=== PATIENT | male | born 1985 | race Hispanic/Latino ===

== ENCOUNTER 2018-02-19 20:04 | Emergency (ER) | payer BC ==
[2018-02-19] MEDS ORDERED: NA CHLORIDE 0.9% 1,000 ML ONE (21:01)
--- NOTE | 2018-02-19 21:26 | RAD REPORT ---
EXAM DESCRIPTION: CT - Head Brain Wo Cont - 02/19/2018 9:21 pm CLINICAL HISTORY: Seizures, history of brain injury 5 years earlier COMPARISON: CT head June 2017 TECHNIQUE: Axial 5 mm thick images of the head were obtained without IV contrast. All CT scans are performed using dose optimization technique as appropriate and may include automated exposure control or mA/KV adjustment according to patient size. FINDINGS: No intracranial hemorrhage, mass, edema or shift of mid-line structures. No acute infarcti on changes seen. Large area of encephalomalacia is present in the right frontal lobe from prior traum a. Smaller area of right temporal encephalomalacia is present. There is extensive postsurgical change to the right side of the skull. A Ventricles are normal. Mastoid air cells and visualized portions of the paranasal sinuses are clear. No acute bony findings. IMPRESSION: Negative non-contrast CT head examination for acute finding. No significant change Benitez orosco.
[2018-02-19 21:39] LABS: Absolute Lymphocytes (CBC) 0.7 K/uL (0.7-4.9); Absolute Monocytes 0.7 K/uL (0.1-1.3); Absolute Neutrophil 8.6 K/uL (1.8-8.0); Basophils % 0.2 % (0-1.3); Eosinophils % 0.1 % (0-4.4); Lymphocytes % 6.7 % (15.3-44.8); MCH 30.6 pg (27.0-35.0); MCV 87.4 fL (80-100); MPV 7.9 fL (7.6-11.3); Monocytes % 7.4 % (3.3-12.3); RBC Red Blood Cell Count 5.49 M/uL (4.33-5.43)
[2018-02-19 21:50] LABS: Barbiturates NEGATIVE (NEGATIVE); Benzodiazepines NEGATIVE (NEGATIVE); Cocaine NEGATIVE (NEGATIVE); METHAMPHETAM NEGATIVE (NEGATIVE); Methadone NEGATIVE (NEGATIVE); Opiates NEGATIVE (NEGATIVE); Phencyclidine NEGATIVE (NEGATIVE); THC Cannibis NEGATIVE (NEGATIVE)
[2018-02-19 21:52] LABS: Potassium 3.9 mmol/L (3.5-5.1)
[2018-02-19 22:13] LABS: Blood Morphology Comment NOT SEEN (NOT SEEN); Platelet Estimate ADEQ
--- NOTE | 2018-02-19 22:22 | ER ---
Nurse's Notes [facility] Name: Mario Munoz Age: 32 yrs Sex: Male : 1985 Arrival Date: 02/19/2018 Time: 20:05 Bed 14 Private MD: Diagnosis: Epilepsy and recurrent seizures Presentation: 02/19 20:26 Presenting complaint: pt girlfriend stated pt had 2 seizures today, no hx seizures. pt ak1 girlfriend stated 1300 and 1830 when seizures occurred. Transition of care: patient was not received from another setting of care. Onset of symptoms was February 19, 2018. Risk Assessment: Do you want to hurt yourself or someone else? Patient reports no desire to harm self or others. Initial Sepsis Screen: Does the patient meet any 2 criteria? No. Patient's initial sepsis screen is negative. Does the patient have a suspected source of infection? No. Patient's initial sepsis screen is negative. Care prior to arrival: None. 20:26 Method Of Arrival: Ambulatory ak1 20:26 Acuity: CEM 3 ak1 20:28 Note pt admits to daily alcohol drinking, pt did not drink today. pt stated he drinks ak1 "a lot" pt denies street drugs. pt c/o throat pain. Triage Assessment: 20:25 General: Appears in no apparent distress. Behavior is calm, cooperative. Neuro: Level ak1 of Consciousness is awake, alert, obeys commands, Oriented to person, place, time, situation, Manager Transit are equal bilaterally Moves all extremities. Gait is steady, Speech is normal, Facial symmetry appears normal. 20:30 Pain: Complains of pain in throat pain. ak1 Historical: - Allergies: 20:25 No Known Allergies; ak1 - Home Meds: 20:25 None [Active]; ak1 - PMHx: 20:25 brain injury; ak1 - PSHx: 20:25 craniotomy; ak1 - Immunization history:: Adult Immunizations unknown. - Social history:: Smoking status: Patient/guardian denies using tobacco. - Ebola Screening: : No symptoms or risks identified at this time. Screenin:28 Abuse screen: Denies threats or abuse. Denies injuries from another. Nutritional ak1 screening: No deficits noted. Tuberculosis screening: No symptoms or risk factors identified. Fall Risk None identified. Assessment: 20:45 General: Appears in no apparent distress. comfortable, Behavior is calm, cooperative, aa1 appropriate for age. Neuro: Level of Consciousness is awake, alert, obeys commands, Oriented to person, place, time, situation, Moves all extremities. Full function Gait is steady, Speech is normal, Facial symmetry appears normal, Pupils are PERRLA, Reports headache Denies blurred vision dizziness, diplopia. Neuro: Reports Seizure activity reported prior to arrival. Cardiovascular: Heart tones S1 S2 present. Respiratory: Airway is patent Respiratory effort is even, unlabored, Respiratory pattern is regular, symmetrical. GI: No signs and/or symptoms were reported involving the gastrointestinal system. : No signs and/or symptoms were reported regarding the genitourinary system. EENT: No signs and/or symptoms were reported regarding the EENT system. Derm: Skin is intact, is healthy with good turgor, Skin is pink, warm \\T\\ dry. Musculoskeletal: Circulation, motion, and sensation intact. Capillary refill < 3 seconds. 21:40 Reassessment: Patient appears in no apparent distress at this time. Patient and/or aa1 family updated on plan of care and expected duration. Pain level reassessed. Patient is alert, oriented x 3, equal unlabored respirations, skin warm/dry/pink. Awaiting lab results. 22:54 Reassessment: Patient appears in no apparent distress at this time. Patient is alert, aa1 oriented x 3, equal unlabored respirations, skin warm/dry/pink. Discussed d/c \\T\\ f/u instructions with pt \\T\\ family; denies questions or concerns at this time Patient denies pain at this time. Vital Signs: 20:26 BP 130 / 90; Pulse 110; Resp 20; Temp 98.2(O); Pulse Ox 96% on R/A; Weight 90.72 kg ak1 (R); Height 6 ft. 2 in. (187.96 cm); Pain 8/10; 20:57 BP 128 / 93; Pulse 89; Resp 16; Pulse Ox 95% on R/A; mt 21:40 BP 130 / 86; Pulse 82; Resp 18; Pulse Ox 97% on R/A; aa1 22:54 BP 136 / 86; Pulse 84; Resp 16; Pulse Ox 96% on R/A; Pain 0/10; aa1 20:26 Body Mass Index 25.68 (90.72 kg, 187.96 cm) ak1 Lanre Coma Score: 20:25 Eye Response: spontaneous(4). Verbal Response: oriented(5). Motor Response: obeys ak1 commands(6). Total: 15. ED Course: 20:05 Patient arrived in ED. ds1 20:26 Arm band placed on Patient placed in an exam room, Patient notified of wait time. ak1 20:27 Triage completed. ak1 20:30 Patient has correct armband on for positive identification. ak1 20:32 Preet Mendoza MD is Attending Physician. gs 20:35 Seizure precautions initiated. aa1 20:50 Inserted saline lock: 20 gauge in right antecubital area, using aseptic technique. mt Blood collected. 20:50 Urine collected: clean catch specimen. aa1 20:53 Indigo Wilhelm, RN is Primary Nurse. aa1 21:21 CT Head Brain wo Cont In Process Unspecified. EDMS 22:21 Ryland Rush MD is Referral Physician. gs 22:54 No provider procedures requiring assistance completed. IV discontinued, intact, aa1 bleeding controlled, No redness/swelling at site. Pressure dressing applied. Administered Medications: 21:00 Drug: NS 0.9% 1000 ml Route: IV; Rate: 1 bolus; Site: right antecubital; aa1 22:00 Follow up: IV Status: Completed infusion aa1 Outcome: 22:21 Discharge ordered by . gs 22:54 Discharged to home ambulatory, with family. aa1 22:54 Condition: good 22:54 Discharge instructions given to patient, family, Instructed on discharge instructions, follow up and referral plans. Demonstrated understanding of instructions, follow-up care. 22:57 Patient left the ED. aa1 Signatures: Dispatcher [employer] EDMS Indigo Wilhelm, Rossana Beebe RN ds1 Carmen Phelps RN RN ak1 Thompson, Moriah ar Preet Mendoza MD MD gs
--- NOTE | 2018-02-19 22:22 | EDPHYS ---
Physician Documentation [facility] Name: Mario Munoz Age: 32 yrs Sex: Male : 1985 Arrival Date: 02/19/2018 Time: 20:05 Bed 14 Private MD: ED Physician Preet Mendoza HPI: 02/20 01:18 This 32 yrs old Male presents to ER via Ambulatory with complaints of Seizure. gs 01:18 The patient presents with a history of multiple seizures, a total of 2, that last 3 gs minute(s). Character of seizure(s): Motor activity: generalized. Seizure onset: at 13:00, then 4 hours later. Context: the seizure(s) was witnessed, by a significant other. Associated injury: Head/face: tongue, abrasion. Current symptoms: headache, that is mild. The patient has not experienced similar symptoms in the past. Historical: - Allergies: 02/19 20:25 No Known Allergies; ak1 - Home Meds: 20:25 None [Active]; ak1 - PMHx: 20:25 brain injury; ak1 - PSHx: 20:25 craniotomy; ak1 - Immunization history:: Adult Immunizations unknown. - Social history:: Smoking status: Patient/guardian denies using tobacco. - Ebola Screening: : No symptoms or risks identified at this time. ROS: 02/20 01:18 All other systems are negative. gs Exam: 01:18 Head/Face: Normocephalic, atraumatic. Eyes: Pupils equal round and reactive to light, gs extra-ocular motions intact. Lids and lashes normal. Conjunctiva and sclera are non-icteric and not injected. Cornea within normal limits. Periorbital areas with no swelling, redness, or edema. Neck: Trachea midline, no thyromegaly or masses palpated, and no cervical lymphadenopathy. Supple, full range of motion without nuchal rigidity, or vertebral point tenderness. No Meningismus. Chest/axilla: Normal chest wall appearance and motion. Nontender with no deformity. No lesions are appreciated. Cardiovascular: Regular rate and rhythm with a normal S1 and S2. No gallops, murmurs, or rubs. Normal PMI, no JVD. No pulse deficits. Respiratory: Lungs have equal breath sounds bilaterally, clear to auscultation and percussion. No rales, rhonchi or wheezes noted. No increased work of breathing, no retractions or nasal flaring. Abdomen/GI: Soft, non-tender, with normal bowel sounds. No distension or tympany. No guarding or rebound. No evidence of tenderness throughout. Back: No spinal tenderness. No costovertebral tenderness. Full range of motion. Skin: Warm, dry with normal turgor. Normal color with no rashes, no lesions, and no evidence of cellulitis. MS/ Extremity: Pulses equal, no cyanosis. Neurovascular intact. Full, normal range of motion. Neuro: Awake and alert, GCS 15, oriented to person, place, time, and situation. Cranial nerves II-XII grossly intact. Motor strength 5/5 in all extremities. Sensory grossly intact. Cerebellar exam normal. Normal gait. 01:18 Constitutional: The patient appears alert, awake. 01:18 ENT: Mouth: Tongue: abrasion left side. Vital Signs: 02/19 20:26 BP 130 / 90; Pulse 110; Resp 20; Temp 98.2(O); Pulse Ox 96% on R/A; Weight 90.72 kg ak1 (R); Height 6 ft. 2 in. (187.96 cm); Pain 8/10; 20:57 BP 128 / 93; Pulse 89; Resp 16; Pulse Ox 95% on R/A; mt 21:40 BP 130 / 86; Pulse 82; Resp 18; Pulse Ox 97% on R/A; aa1 22:54 BP 136 / 86; Pulse 84; Resp 16; Pulse Ox 96% on R/A; Pain 0/10; aa1 20:26 Body Mass Index 25.68 (90.72 kg, 187.96 cm) ak1 Lanre Coma Score: 20:25 Eye Response: spontaneous(4). Verbal Response: oriented(5). Motor Response: obeys ak1 commands(6). Total: 15. MDM: 20:46 Patient medically screened. 02/20 01:18 Differential diagnosis: seizure. Data reviewed: vital signs, nurses notes. Response to treatment: the patient's symptoms have markedly improved after treatment, and as a result, I will discharge patient. 01:18 Counseling: I had a detailed discussion with the patient and/or guardian regarding: the gs historical points, exam findings, and any diagnostic results supporting the discharge/admit diagnosis, lab results, the need for outpatient follow up, a neurologist. 02/19 20:47 Order name: Basic Metabolic Panel; Complete Time: 22:19 02/19 20:47 Order name: CBC with Diff; Complete Time: 22:19 02/19 20:47 Order name: CT Head Brain wo Cont; Complete Time: 21:27 02/19 20:47 Order name: Urine Drug Screen; Complete Time: 22:19 02/19 21:41 Order name: Manual Differential; Complete Time: : EDMS Administered Medications: 02/19 21:00 Drug: NS 0.9% 1000 ml Route: IV; Rate: 1 bolus; Site: right antecubital; aa1 22:00 Follow up: IV Status: Completed infusion aa1 Disposition: 02/19/18 22:21 Discharged to Home. Impression: Epilepsy and recurrent seizures. - Condition is Stable. - Discharge Instructions: Seizure, Adult. - Medication Reconciliation Form, Thank You Letter, Antibiotic Education, Prescription Opioid Use form. - Follow up: Ryland Rush MD; When: 2 - 3 days; Reason: Re-evaluation by your physician. Signatures: Dispatcher [employer] EDIndigo Koenig RN RN aa1 Carmen Phelps RN RN ak1 Preet Mendoza MD MD Corrections: (The following items were deleted from the chart) 22:57 22:21 02/19/2018 22:21 Discharged to Home. Impression: Epilepsy and recurrent seizures. aa1 Condition is Stable. Forms are Medication Reconciliation Form, Thank You Letter, Antibiotic Education, Prescription Opioid Use. Follow up: Ryland Rush; When: 2 - 3 days; Reason: Re-evaluation by your physician.
[2018-02-19 23:02] VITALS: TEMP 98.2
[2018-02-19 23:06] VITALS: BP 136/86; O2SAT 96
== END 2018-02-19 22:57 | disposition home or self-care (01) ==
LOC: ER 20:04
DX: G40.909 Epilepsy, unspecified, not intractable, without status epilepticus (principal)
CPT/HCPCS: 36415; 70450; 80048; 80307; 85025; 96360; 99284; J7030

== ENCOUNTER 2020-11-28 20:01 | Emergency (ER) | payer BC ==
--- NOTE | 2020-11-28 21:30 | RAD REPORT ---
EXAM DESCRIPTION: US - Scrotum Testicles - 11/28/2020 9:22 pm CLINICAL HISTORY: pain on L testicle Pain and swelling COMPARISON: No comparisons FINDINGS: The right testicle 4.3 x 3.2 x 2.1 cm. No intratesticular masses or evidence of testicular torsion. The left testicle 4.0 x 3.3 x 2.2 cm. No intratesticular masses or evidence of testicular torsion. Both epididymides are normal in size and appearance. Mild fluid in both scrotal sacs. IMPRESSION: No acute or worrisome abnormality seen.
[2020-11-28 22:20] LABS: Urine Blood Negative (Negative); Urine Glucose Negative (Negative); Urine Protein Negative (Negative); Urine Specific Gravity >=1.030 (1.005-1.030)
[2020-11-29 00:12] LABS: Absolute Lymphocytes (CBC) 2.5 K/uL (0.7-4.9); Basophils % 0.5 % (0-1.3); Hematocrit 46.6 % (39.6-49.0); Lymphocytes % 35.6 % (15.3-44.8); MPV 7.8 fL (7.6-11.3)
[2020-11-29 00:33] LABS: ALT/SGPT 41 U/L (12-78); AST/SGOT 20 U/L (15-37); Alkaline Phosphatase 106 U/L (45-117); BUN Blood Urea Nitrogen 18 mg/dL (7-18); Bicarbonate 28 mmol/L (21-32); Bilirubin Direct < 0.1 mg/dL (0-0.2); Bilirubin Total 0.4 mg/dL (0.2-1.0); Glucose Level 93 mg/dL (74-106); Lipase 126 U/L (73-393); Potassium 3.5 mmol/L (3.5-5.1); Protein, Total 8.1 g/dL (6.4-8.2); Sodium Level 140 mmol/L (136-145)
--- NOTE | 2020-11-29 01:32 | EDPHYS ---
Physician Documentation [facility] Name: Mario Munoz Age: 35 yrs Sex: Male : 1985 Arrival Date: 11/28/2020 Time: 20:04 Bed 13 Private MD: ED Physician Rick Noel HPI: 11/28 23:20 This 35 yrs old Male presents to ER via Ambulatory with complaints of Pubic mh7 Pain. 23:20 The patient presents with abdominal pain in the left lower quadrant. Onset: The mh7 symptoms/episode began/occurred 1 day(s) ago. The symptoms radiate to left testicle. Associated signs and symptoms: Pertinent positives: testicular pain, Pertinent negatives: nausea, vomiting, and diarrhea, nausea and vomiting, anorexia, blood in stools, chest pain, constipation, diarrhea, dysuria, fever, headache, hematuria, nausea, palpitations, shortness of breath, vomiting, vomiting blood. The symptoms are described as intermittent, vague, waxing/waning. Modifying factors: The symptoms are alleviated by nothing, the symptoms are aggravated by movement. Severity of pain: At its worst the pain was moderate yesterday, in the emergency department the pain has improved moderately. Historical: - Allergies: 20:14 No Known Allergies; ca1 - Home Meds: 20:14 None [Active]; ca1 - PMHx: 20:14 TBI; ca1 - PSHx: 20:14 brain surgery; ca1 - Immunization history:: Client reports receiving the 1st dose of the Covid vaccine, Flu vaccine is not up to date. - Social history:: Smoking status: Patient/guardian denies using tobacco, the patient reports quitting approximately 5 years ago. ROS: 23:20 Constitutional: Negative for fever, chills, and weight loss, Eyes: Negative for injury, mh7 pain, redness, and discharge, ENT: Negative for injury, pain, and discharge, Neck: Negative for injury, pain, and swelling, Cardiovascular: Negative for chest pain, palpitations, and edema, Respiratory: Negative for shortness of breath, cough, wheezing, and pleuritic chest pain, Back: Negative for injury and pain, MS/Extremity: Negative for injury and deformity, Skin: Negative for injury, rash, and discoloration, Neuro: Negative for headache, weakness, numbness, tingling, and seizure, Psych: Negative for depression, anxiety, suicide ideation, homicidal ideation, and hallucinations, Allergy/Immunology: Negative for hives, rash, and allergies, Endocrine: Negative for neck swelling, polydipsia, polyuria, polyphagia, and marked weight changes, Hematologic/Lymphatic: Negative for swollen nodes, abnormal bleeding, and unusual bruising. Exam: 23:20 Constitutional: This is a well developed, well nourished patient who is awake, alert, mh7 and in no acute distress. Head/Face: Normocephalic, atraumatic. Eyes: Pupils equal round and reactive to light, extra-ocular motions intact. Lids and lashes normal. Conjunctiva and sclera are non-icteric and not injected. Cornea within normal limits. Periorbital areas with no swelling, redness, or edema. Neck: Trachea midline, no thyromegaly or masses palpated, and no cervical lymphadenopathy. Supple, full range of motion without nuchal rigidity, or vertebral point tenderness. No Meningismus. Chest/axilla: Normal chest wall appearance and motion. Nontender with no deformity. No lesions are appreciated. Cardiovascular: Regular rate and rhythm with a normal S1 and S2. No gallops, murmurs, or rubs. Normal PMI, no JVD. No pulse deficits. Respiratory: Lungs have equal breath sounds bilaterally, clear to auscultation and percussion. No rales, rhonchi or wheezes noted. No increased work of breathing, no retractions or nasal flaring. 23:20 Skin: Warm, dry with normal turgor. Normal color with no rashes, no lesions, and no evidence of cellulitis. MS/ Extremity: Pulses equal, no cyanosis. Neurovascular intact. Full, normal range of motion. Neuro: Awake and alert, GCS 15, oriented to person, place, time, and situation. Cranial nerves II-XII grossly intact. Motor strength 5/5 in all extremities. Sensory grossly intact. Cerebellar exam normal. Normal gait. Psych: Awake, alert, with orientation to person, place and time. Behavior, mood, and affect are within normal limits. 23:20 Abdomen/GI: Inspection: abdomen appears normal, Bowel sounds: normal, in all quadrants, Palpation: moderate abdominal tenderness, in the left lower quadrant, mass, is not appreciated, rebound tenderness, is not appreciated, voluntary guarding, is not appreciated, involuntary guarding, is not appreciated, no appreciated organomegaly, Rectal exam: the exam is deferred, because of patient request, Indicators: McBurney's point is not tender, Lewis's sign is negative, Rovsing's sign is negative, Obturator sign is negative, Psoas sign is negative, Liver: no appreciated palpable abnormalities, Hernia: not appreciated. 23:20 Back: pain, is absent, ROM is normal, normal spinal alignment noted, CVA tenderness, is absent, muscle spasm, is not present. 23:20 : CVA tenderness, is absent, Male external genitalia: Patient is not circumisioned. erythema, is absent, penile discharge, is absent, puncture, is not present, swelling: is not appreciated, tenderness, is palpated in the left inguinal area, that is mild, ulceration, is not present, Bladder: is normal. Vital Signs: 20:09 BP 122 / 95; Pulse 98; Resp 18 S; Temp 99.1(TE); Pulse Ox 98% on R/A; Weight 95.25 kg ca1 (R); Height 6 ft. 2 in. (187.96 cm) (R); Pain 3/10; 11/29 00:05 BP 122 / 80; Pulse 73; Resp 16; Pulse Ox 98% on R/A; zb 11/28 20:09 Body Mass Index 26.96 (95.25 kg, 187.96 cm) ca1 MDM: 01:30 Differential diagnosis: appendicitis, bowel obstruction, diverticulitis, non-specific mh7 abd pain, Testicular Torsion, Ureterolithiasis, urinary tract infection. Data reviewed: vital signs, nurses notes, lab test result(s), CBC, electrolytes, urinalysis, radiologic studies, CT scan, ultrasound. Counseling: I had a detailed discussion with the patient and/or guardian regarding: the historical points, exam findings, and any diagnostic results supporting the discharge/admit diagnosis, lab results, radiology results, the need for outpatient follow up, a urologist, to return to the emergency department if symptoms worsen or persist or if there are any questions or concerns that arise at home. Response to treatment: the patient's symptoms have markedly improved after treatment. 01:32 Patient medically screened. [facility] 11/28 22:20 Order name: Urine Dipstick-Ancillary EDAZ 11/28 23:17 Order name: Basic Metabolic Panel; Complete Time: : [facility] 11/28 20:20 Order name: US Scrotum Testicles; Complete Time: 23:01 [facility] 11/28 23:17 Order name: CBC with Diff; Complete Time: : [facility] 11/28 23:17 Order name: Hepatic Function; Complete Time: : [facility] 11/28 23:17 Order name: Lipase; Complete Time: : [facility] 11/28 21:56 Order name: Urine Dipstick-Ancillary (obtain specimen); Complete Time: 22:20 [facility] 11/28 23:17 Order name: IV Saline Lock; Complete Time: 00: [facility] 11/28 23:17 Order name: Labs collected and sent; Complete Time: 00: [facility] 11/28 23:17 Order name: CT Stone Protocol [facility] Administered Medications: No medications were administered Disposition: 11/29/20 01:32 Discharged to Home. Impression: Cystitis, unspecified, Hydrocele, unspecified. - Condition is Stable. - Discharge Instructions: Hydrocele, Adult, Interstitial Cystitis. - Prescriptions for Pyridium 200 mg Oral Tablet - take 1 tablet by ORAL route every 8 hours for 2 days; 6 tablet. Cipro 500 mg Oral Tablet - take 1 tablet by ORAL route every 12 hours for 7 days; 14 tablet. - Medication Reconciliation Form, Thank You Letter, Antibiotic Education, Prescription Opioid Use form. - Follow up: Private Physician; When: 1 - 2 days; Reason: Worsening of condition, Recheck today's complaints, Continuance of care, Re-evaluation by your physician. Follow up: Rayo Lindsey MD; When: 2 - 3 days; Reason: Recheck today's complaints. - Problem is new. - Symptoms have improved. Signatures: Dispatcher [facility] Bassam Morales RN RN fu Acob, Cheryl, RN RN ca1 Holmes, Maurice, MD MD 7 Corrections: (The following items were deleted from the chart) 01:33 01:32 11/29/2020 01:32 Discharged to Home. Impression: Cystitis, unspecified; 7 Hydrocele, unspecified. Condition is Stable. Forms are Medication Reconciliation Form, Thank You Letter, Antibiotic Education, Prescription Opioid Use. Follow up: Private Physician; When: 1 - 2 days; Reason: Worsening of condition, Recheck today's complaints, Continuance of care, Re-evaluation by your physician. Problem is new. Symptoms have improved. mh7 02:18 01:33 11/29/2020 01:32 Discharged to Home. Impression: Cystitis, unspecified; fu Hydrocele, unspecified. Condition is Stable. Discharge Instructions: Hydrocele, Adult, Interstitial Cystitis. Prescriptions for Pyridium 200 mg Oral Tablet - take 1 tablet by ORAL route every 8 hours for 2 days; 6 tablet, Cipro 500 mg Oral Tablet - take 1 tablet by ORAL route every 12 hours for 7 days; 14 tablet. and Forms are Medication Reconciliation Form, Thank You Letter, Antibiotic Education, Prescription Opioid Use. Follow up: Private Physician; When: 1 - 2 days; Reason: Worsening of condition, Recheck today's complaints, Continuance of care, Re-evaluation by your physician. Follow up: Rayo Lindsey; When: 2 - 3 days; Reason: Recheck today's complaints. Problem is new. Symptoms have improved. 7
--- NOTE | 2020-11-29 01:32 | ER ---
Nurse's Notes [facility] Name: Mario Munoz Age: 35 yrs Sex: Male : 1985 Arrival Date: 11/28/2020 Time: 20:04 Bed 13 Private MD: Diagnosis: Cystitis, unspecified;Hydrocele, unspecified Presentation: 11/28 20:09 Chief complaint: Patient states: pain on LLQ down to the L testicle since yesterday. ca1 Pain is aggravated with repositioning and straining. Denies testicular swelling. Reports tenderness on L testicle. Denies urinary symptoms. Denies N/V/D. Coronavirus screen: Client denies travel out of the [place] in the last 14 days. At this time, the client does not indicate any symptoms associated with coronavirus-19. Ebola Screen: Patient negative for fever greater than or equal to 101.5 degrees Fahrenheit, and additional compatible Ebola Virus Disease symptoms Patient denies exposure to infectious person. Patient denies travel to an Ebola-affected area in the 21 days before illness onset. No symptoms or risks identified at this time. Initial Sepsis Screen: Does the patient meet any 2 criteria? No. Patient's initial sepsis screen is negative. Does the patient have a suspected source of infection? No. Patient's initial sepsis screen is negative. Risk Assessment: Do you want to hurt yourself or someone else? Patient reports no desire to harm self or others. Onset of symptoms was November 27, 2020. 20:09 Acuity: CEM 3 ca1 20:09 Method Of Arrival: Ambulatory ca1 Historical: - Allergies: 20:14 No Known Allergies; ca1 - Home Meds: 20:14 None [Active]; ca1 - PMHx: 20:14 TBI; ca1 - PSHx: 20:14 brain surgery; ca1 - Immunization history:: Client reports receiving the 1st dose of the Covid vaccine, Flu vaccine is not up to date. - Social history:: Smoking status: Patient/guardian denies using tobacco, the patient reports quitting approximately 5 years ago. Screenin/26 00:03 Abuse screen: Denies threats or abuse. Denies injuries from another. Nutritional zb screening: No deficits noted. Tuberculosis screening: No symptoms or risk factors identified. Fall Risk None identified. Assessment: 11/28 20:20 Reassessment: DMITRY Noel US scrotum. ca1 11/29 00:04 General: Appears in no apparent distress. comfortable, Behavior is calm, cooperative, zb appropriate for age. Pain: Complains of pain in left lower quadrant Pain currently is 0 out of 10 on a pain scale. at worst was 3 out of 10 on a pain scale. Quality of pain is described as sharp, throbbing, Pain began 2-3 days ago. Is intermittent. Neuro: Level of Consciousness is awake, alert, obeys commands, Oriented to person, place, time, situation. Cardiovascular: Patient's skin is warm and dry. Respiratory: Airway is patent Respiratory effort is even, unlabored, Respiratory pattern is regular, symmetrical. GI: Abdomen is flat, Bowel sounds present X 4 quads. Abdomen is tender to palpation in left lower quadrant. Derm: Skin is intact, is healthy with good turgor, Skin is dry. Musculoskeletal: Range of motion: intact in all extremities. 00:49 Reassessment: Patient and/or family updated on plan of care and expected duration. Pain fu level reassessed. Patient is alert, oriented x 3, equal unlabored respirations, skin warm/dry/pink. 01:30 Reassessment: No changes from previously documented assessment. Patient and/or family fu updated on plan of care and expected duration. Pain level reassessed. Patient states feeling better. 02:00 Reassessment: No changes from previously documented assessment. Patient and/or family fu updated on plan of care and expected duration. Pain level reassessed. Vital Signs: 11/28 20:09 BP 122 / 95; Pulse 98; Resp 18 S; Temp 99.1(TE); Pulse Ox 98% on R/A; Weight 95.25 kg ca1 (R); Height 6 ft. 2 in. (187.96 cm) (R); Pain 3/10; 11/29 00:05 BP 122 / 80; Pulse 73; Resp 16; Pulse Ox 98% on R/A; zb 11/28 20:09 Body Mass Index 26.96 (95.25 kg, 187.96 cm) ca1 ED Course: 11/28 20:04 Patient arrived in ED. bp1 20:13 Triage completed. ca1 20:14 Arm band placed on right wrist. ca1 21:22 US Scrotum Testicles In Process Unspecified. EDMS 23:00 Rick Noel MD is Attending Physician. [facility] 23:29 Trisha Villarreal, CYNDI is Primary Nurse. zb 11/29 00:05 Patient has correct armband on for positive identification. Pulse ox on. NIBP on. Door zb closed. Noise minimized. 00:05 Initial lab(s) drawn, by me, sent to lab. Inserted saline lock: 20 gauge in right zb antecubital area, using aseptic technique. Blood collected. 00:34 CT Stone Protocol In Process Unspecified. EDMS 01:33 Rayo Lindsey MD is Referral Physician. [facility] 02:10 No provider procedures requiring assistance completed. IV discontinued, bleeding fu controlled, Pressure dressing applied. Administered Medications: No medications were administered Outcome: 11/28 02:10 Discharged to home ambulatory. fu Condition: good Discharge instructions given to patient, Instructed on discharge instructions, follow up and referral plans. Demonstrated understanding of instructions, Prescriptions given X 2. 11/29 01:32 Discharge ordered by . 7 02:18 Patient left the ED. fu Signatures: Dispatcher [employer] EDMT Bassam Morales, RN RN Christina Escobedo RN RN [facility] Tenisha Medina [facility] Rick Noel MD MD [facility] Trisha Villarreal, CYNDI HANNA
[2020-11-29 02:47] VITALS: TEMP 99.1; O2SAT 98
[2020-11-29 02:48] VITALS: BP 122/80
--- NOTE | 2020-11-29 20:15 | RAD REPORT ---
EXAM DESCRIPTION: CT - Stone Protocol - 11/29/2020 6:34 am CLINICAL HISTORY: ABD PAIN COMPARISON: None Available. TECHNIQUE: CT of the abdomen and pelvis without IV contrast. Evaluation of the solid organs and vasc ulature is suboptimal due to lack of IV contrast. This exam was performed according to our department al dose-optimization program, which includes automated exposure control, adjustment of the mA and/or kV according to patient size and/or use of iterative reconstruction technique. FINDINGS: Lung Bases: The visualized lung bases are clear. Bones: Minimal endplate spondylosis. Abdomen: Liver: The liver has normal size and density. Gallbladder: No calcified gallstones. Spleen, Pancreas, and Adrenal Glands: The spleen, pancreas, and adrenal glands are unremarkable. Kidneys: The kidneys have normal size without evidence of hydronephrosis. No obstructing ureteral dorota culi. Vasculature: The aorta and IVC have normal caliber and position. Stomach: The stomach and duodenum have normal course. Other: No free intraperitoneal air. No free fluid or lymphadenopathy. Pelvis: Bladder: Wall thickening of the urinary bladder. Bowel: No dilated loops of large or small bowel. Appendix: Normal appendix. Pelvis: Prostate is not enlarged. IMPRESSION: 1. Wall thickening of the urinary bladder. This could be seen with cystitis. Electronically signed by: Wali Coronado 11/29/2020 12:41 AM CDT Due to temporary technical issues with the PACS/Fluency reporting system, reports are being signed by the in house radiologists without review as a courtesy to insure prompt reporting. The interpreting radiologist is fully responsible for the content of the report
== END 2020-11-29 02:18 | disposition home or self-care (01) ==
LOC: ER 20:01
DX: N30.90 Cystitis, unspecified without hematuria (principal); N43.3 Hydrocele, unspecified; Z87.820 Personal history of traumatic brain injury
CPT/HCPCS: 36415; 74176; 76377; 76870; 81003; 85025; 99284